=== PATIENT | female | born 1950 | race Caucasian/White ===

== ENCOUNTER → 2019-01-12 | Outpatient (CLI) | payer MEDICARE ==
[~2019-01-12] MED LIST: AZITHROMYCIN 2250 MG PO; CIPROFLOXIN HC2.5 M1 OPHTHALMIC; FLONASE16 GM NASAL; LEVOTHROID300 MCG; TUSSIONEX PENN473 ML PO; ZOCOR20 MG PO; ZYRTEC-D TABLE1 EAC1 PO; [UNRECOGNIZED DRUG - REMARK]
== END ==
LOC: M.RAD 12:43 → M.CT 13:45 → M.RAD 14:00
DX: Z12.31 Encounter for screening mammogram for malignant neoplasm of breast (principal); E78.00 Pure hypercholesterolemia, unspecified; Z88.0 Allergy status to penicillin

== ENCOUNTER → 2019-01-12 | Outpatient (CLI) | payer OTHER | LOC: M.CT 12:35 | DX: Z13.6 Encounter for screening for cardiovascular disorders (principal); I25.10 Atherosclerotic heart disease of native coronary artery without angina pectoris; E78.00 Pure hypercholesterolemia, unspecified ==